=== PATIENT | female | born 1995 ===

== ENCOUNTER 2017-03-24 10:05 | Emergency (ER) | payer SELFPAY ==
--- NOTE | 2017-03-24 10:53 | UC ---
Skin Complaint HPI - History of Current Complaint Chief Complaint: UCSkin Time Seen by Provider: 03/24/17 10:37 Stated Complaint: SKIN COMPLAINT Hx Obtained From: Patient Hx Last Menstrual Period: 03/23/17 Onset/Duration: Gradual Onset - started 3-4 days ago with itchy sore on R chin. has been applying neosporin oint but sore is getting bigger not better Timing: Constant Onset Severity: Mild Current Severity: Mild Aggravating: Touch Alleviating: Nothing Associated Signs & Symptoms: Positive: Negative Related History: Trauma Similar Episode/Dx as: Impetigo - Allergy/Home Medications Allergies/Adverse Reactions: Allergies Allergy/AdvReac Type Severity Reaction Status Date / Time No Known Allergies Allergy Verified 03/24/17 10:28 Home Medications: Home Medications Etonogestrel IMPLANT(NF) [Implanon (NF)-not available] 68 mg IMPLANT DAILY 03/24 [History Confirmed 03/24/17] Review of Systems Constitutional: Negative Skin: Rash - R chin Respiratory: Negative Cardiovascular: Negative Neurological: Negative Psychological: Negative All Other Systems Reviewed And Are Negative: Yes PMH/Surg Hx/FS Hx/Imm Hx Previously Healthy: Yes - Surgical History Surgical History: Yes Surgery Procedure, Year, and Place: skin graft on L calf - Family History Known Family History: Positive: None - Social History Occupation: Unemployed Lives: With Family Alcohol Use: Rare Substance Use Type: None Smoking Status (MU): Heavy Every Day Tobacco Smoker Type: Cigarettes Amount Used/How Often: 10-15 rolled cigg a day Length of Time of Smoking/Using Tobacco: since age 15 Have You Smoked in the Last Year: Yes Cessation Counseling: Patient Advised to Stop Physical Exam Triage Information Reviewed: Yes Appearance: Well-Appearing, No Pain Distress, Well-Nourished Vital Signs: Initial Vital Signs Temp 98.5 F 03/24/17 10:18 Pulse 91 03/24/17 10:18 Resp 14 03/24/17 10:18 BP 109/75 03/24/17 10:18 Pulse Ox 98 03/24/17 10:18 Vital Signs Reviewed: Yes Respiratory Exam: Normal Cardiovascular Exam: Normal Skin: Positive: Other - 8mm circular honey crusted lesion R chin Course/Dx - Differential Diagnoses - Skin Complaint Differential Diagnoses: Contact Dermatitis, Eczema, Impetigo, Other - herpes - Diagnoses Provider Diagnoses: Impetigo Discharge - Discharge Plan Condition: Good Disposition: HOME Prescriptions: Mupirocin 2% CREAM* [Bactroban 2% CREAM*] 1 applic TOPICAL TID #1 tube Patient Education Materials: Impetigo (ED) Additional Instructions: use bactroban as directed use good handwashing return if no better in 10 days
== END 2017-03-24 11:05 | disposition home or self-care (01) ==
LOC: UCEAST 10:05
DX: L01.00 Impetigo, unspecified (principal); F17.210 Nicotine dependence, cigarettes, uncomplicated
CPT/HCPCS: 99202; G0463